=== PATIENT | male | born 1930 | race Caucasian/White ===

== ENCOUNTER 2016-11-18 16:28 | Inpatient (IN) ==
--- NOTE | 2016-11-18 16:51 | Emergency Department Note ---
Disposition Clinical Impression: Acute cystitis with hematuria, Nephrostomy tube bleed, Urinary bladder cancer, Anemia Disposition: Admitted As Inpatient Condition: Fair General Adult HPI - General Chief complaint: ED General Medical Stated complaint: dark blood coming from nephrostomy tube Time Seen by Provider: 11/18/16 16:47 Source: patient Limitations: no limitations - History of Present Illness Pain Scale: 4 - Related Data Home Medications Medication Instructions Recorded Confirmed Lovastatin [Mevacor] 20 mg PO HS 01/25/15 11/18/16 Omeprazole [PriLOSEC] 20 mg PO DAILY 01/25/15 11/18/16 Docusate [Colace] 100 mg PO DAILY 02/09/15 11/18/16 Tiotropium [Spiriva] 18 mcg IH DAILY 02/09/15 11/18/16 Ipratropium/Albuterol Neb [Duoneb] 3 ml IH TID PRN 05/21/16 11/18/16 LORazepam [Ativan] 1 mg PO QID PRN 05/21/16 11/18/16 Prochlorperazine Maleate 10 mg PO Q6HR PRN 05/21/16 11/18/16 [Compazine] Sennosides [Senna] 8.6 mg PO BID 05/21/16 11/18/16 amLODIPine [Norvasc] 5 mg PO DAILY 05/21/16 11/18/16 Cholecalciferol (D-3) [Vitamin D] 1,000 unit PO DAILY 11/18/16 11/18/16 Oxycodone HCl/Acetaminophen 1 each PO Q6H PRN 11/18/16 11/18/16 [Percocet 5-325 mg Tablet] hydrOXYzine pamoate [HydrOXYzine 25 mg PO HS 11/18/16 11/18/16 Pamoate] Previous Rx's Medication Instructions Recorded Hydrocodone/Acetaminophen [Xodol 1 tab PO TID PRN #30 tablet 05/23/16 10-300 Tablet] Allergies Allergy/AdvReac Type Severity Reaction Status Date / Time Penicillins Allergy Chest Pain Verified 05/21/16 07:33 Sulfa (Sulfonamide Allergy Chest Pain Verified 05/21/16 07:33 Antibiotics) Past Medical History - Past Medical History Medical history: Reports: cancer, COPD, GERD, hyperlipidemia, hypertension, other Surgical history: Reports: appendectomy, cholecystectomy, other Psychiatric history: Reports: no psych history - Social History Smoking Status: Former smoker Smokeless Tobacco Status: No Alcohol use: Reports: none Drug use: Reports: none Physical Exam - General Limitations: no limitations General appearance: alert Course Vital Signs Temperature 98.2 F 11/18/16 16:43 Pulse Rate 81 11/18/16 16:43 Respiratory Rate 18 11/18/16 16:43 Blood Pressure 124/60 11/18/16 16:43 O2 Sat by Pulse Oximetry 92 11/18/16 16:43 Temperature 97.8 F 11/18/16 20:15 Pulse Rate 70 11/18/16 20:15 Respiratory Rate 19 11/18/16 20:15 Blood Pressure 134/66 11/18/16 20:15 O2 Sat by Pulse Oximetry 90 11/18/16 20:15 Oxygen Delivery Oxygen Delivery Room Air Medical Decision Making - Lab Data Result diagrams: 11/18/16 17:14 11/18/16 17:14 Lab Results 11/18/16 11/18/16 11/18/16 Range/Units 17:14 17:14 17:33 WBC 8.0 (4.3-11.1) K/mcL RBC 3.40 L (4.19-5.50) M/mcL Hgb 10.6 L (12.9-16.9) g/dL Hct 32.9 L (37.5-50.1) % MCV 96.8 (83.0-100.0) fL MCH 31.2 (28.0-33.3) pg MCHC 32.2 (31.6-35.5) g/dL RDW 12.1 (11.5-14.5) % Plt Count 301 (140-400) K/mcL MPV 8.4 L (9.4-12.4) fL Immature Gran % 0.4 (0-4) % Seg Neutrophils % 74.6 % Lymphocytes % 14.9 % Monocytes % 8.3 % Eosinophils % 1.4 % Basophils % 0.4 % Neutrophils # 6.0 (1.6-8.9) K/mcL Lymphocytes # 1.2 (0.6-4.6) K/mcL Monocytes # 0.7 (0.0-1.3) K/mcL Eosinophils # 0.1 (0.0-0.6) K/mcL Basophils # 0.0 (0.0-0.2) K/mcL Sodium 138 (136-145) mEq/L Potassium 4.4 (3.5-4.5) mEq/L Chloride 101 (98-109) mEq/L Carbon Dioxide 33 H (19-29) mEq/L BUN 18 (8-26) mg/dL Creatinine 0.95 (0.72-1.25) mg/dL Est GFR ( Amer) > 60 (> 60) Est GFR (Non-Af Amer) > 60 (> 60) BUN/Creatinine Ratio 19 (6-26) Glucose 112 H (70-99) mg/dL Calculated Osmolality 289 (280-300) Lactic Acid 1.5 (0.5-2.2) mmol/L Calcium 8.9 (8.6-10.8) mg/dL Urine Color (Yellow) Urine Clarity (Clear) Urine pH (5.0-8.0) pH Units Ur Specific [place] (1.010-1.025) Urine Protein (Neg-Trace) mg/dL Urine Glucose (UA) (Normal) mg/dL Urine Ketones (Negative) mg/dL Urine Blood (Negative) Urine Nitrite (Negative) Urine Bilirubin (Negative) Urine Urobilinogen (Normal) mg/dL Ur Leukocyte Esterase (Negative) Urine Microscopic RBC (0-3) per hpf Urine Microscopic WBC (0-3) per hpf Amorphous Sediment (Few) Urine Bacteria (None-Few) per hpf Ur Culture Indicated? (NO) Blood Type Antibody Screen 11/18/16 11/18/16 Range/Units 17:36 18:02 WBC (4.3-11.1) K/mcL RBC (4.19-5.50) M/mcL Hgb (12.9-16.9) g/dL Hct (37.5-50.1) % MCV (83.0-100.0) fL MCH (28.0-33.3) pg MCHC (31.6-35.5) g/dL RDW (11.5-14.5) % Plt Count (140-400) K/mcL MPV (9.4-12.4) fL Immature Gran % (0-4) % Seg Neutrophils % % Lymphocytes % % Monocytes % % Eosinophils % % Basophils % % Neutrophils # (1.6-8.9) K/mcL Lymphocytes # (0.6-4.6) K/mcL Monocytes # (0.0-1.3) K/mcL Eosinophils # (0.0-0.6) K/mcL Basophils # (0.0-0.2) K/mcL Sodium (136-145) mEq/L Potassium (3.5-4.5) mEq/L Chloride (98-109) mEq/L Carbon Dioxide (19-29) mEq/L BUN (8-26) mg/dL Creatinine (0.72-1.25) mg/dL Est GFR ( Amer) (> 60) Est GFR (Non-Af Amer) (> 60) BUN/Creatinine Ratio (6-26) Glucose (70-99) mg/dL Calculated Osmolality (280-300) Lactic Acid (0.5-2.2) mmol/L Calcium (8.6-10.8) mg/dL Urine Color Red A (Yellow) Urine Clarity Turbid A (Clear) Urine pH 7.0 (5.0-8.0) pH Units Ur Specific [place] 1.015 (1.010-1.025) Urine Protein >=300 H (Neg-Trace) mg/dL Urine Glucose (UA) Normal (Normal) mg/dL Urine Ketones Trace H (Negative) mg/dL Urine Blood Large H (Negative) Urine Nitrite Positive A (Negative) Urine Bilirubin Moderate H (Negative) Urine Urobilinogen Normal (Normal) mg/dL Ur Leukocyte Esterase Large H (Negative) Urine Microscopic RBC TNTC H (0-3) per hpf Urine Microscopic WBC 50-100 H (0-3) per hpf Amorphous Sediment Moderate H (Few) Urine Bacteria Many H (None-Few) per hpf Ur Culture Indicated? YES A (NO) Blood Type A NEGATIVE Antibody Screen NEGATIVE Attestation Statement - Attestation Attestation: I examined this patient and my medical decision-making was reviewed with the Resident Physician. I agree with the documented findings, disposition and treatment plan as described except to the extent set forth below. [id number] time provided Patient presents with bleeding into his urostomy urine collection appliance. The patient is on hospice for bladder cancer. Appears thin and somewhat frail on exam but in no apparent distress. Patient seen and evaluated in conjunction with the resident physician Dr. Mai
[2016-11-18] MEDS ORDERED: 0.9 % Sodium Chloride 500 ML IVC ONE (17:19)
--- NOTE | 2016-11-18 17:20 | Emergency Department Note ---
Disposition Clinical Impression: Acute cystitis with hematuria, Nephrostomy tube bleed Urinary bladder cancer Qualifiers: Bladder location: unspecified site Qualified Code(s): C67.9 - Malignant neoplasm of bladder, unspecified Anemia Qualifiers: Anemia type: unspecified type Qualified Code(s): D64.9 - Anemia, unspecified Disposition: Admitted As Inpatient Condition: Fair Referrals: NO,PCP [Primary Care Provider] - Forms: ED Satisfaction Letter, Work/School Release Time of Disposition: 18:43 General Adult HPI - General Chief complaint: ED General Medical Stated complaint: dark blood coming from nephrostomy tube Time Seen by Provider: 11/18/16 16:47 Source: patient Limitations: no limitations Nursing Notes Reviewed: Yes Vital Signs Reviewed: Yes - History of Present Illness HPI Narrative: 86-year-old male with history of stage IV bladder cancer, presents with nephrostomy tubes bilaterally, has had more bloody and dark red output out of his left nephrostomy tube, he states that normally his tubes are clear, except for when he takes Pyridium they are sometimes bright red. Patient states that this started today. 08/12 Left flank painThey contacted their urologist Dr. Tomlinson and he stated the patient should come to the emergency dept. Onset (ago): hour(s) Radiation: back Pain Severity: moderate Pain Scale: 4 Quality: aching Improves with: nothing Worsens with: nothing Associated symptoms: Denies: confusion, chest pain, cough - Related Data Home Medications Medication Instructions Recorded Confirmed Lovastatin [Mevacor] 20 mg PO HS 01/25/15 05/21/16 Omeprazole [PriLOSEC] 20 mg PO DAILY 01/25/15 05/21/16 Docusate [Colace] 100 mg PO DAILY PRN 02/09/15 05/21/16 Tiotropium [Spiriva] 18 mcg IH DAILY 02/09/15 05/21/16 Ipratropium/Albuterol Neb [Duoneb] 3 ml IH TID PRN 05/21/16 05/21/16 LORazepam [Ativan] 1 mg PO QID PRN 05/21/16 05/21/16 Prochlorperazine Maleate 10 mg PO Q6HR PRN 05/21/16 05/21/16 [Compazine] Sennosides [Senna] 8.6 mg PO BID 05/21/16 05/21/16 amLODIPine [Norvasc] 5 mg PO DAILY 05/21/16 05/21/16 Previous Rx's Medication Instructions Recorded Hydrocodone/Acetaminophen [Xodol 1 tab PO TID PRN #30 tablet 05/23/16 10-300 Tablet] Allergies Allergy/AdvReac Type Severity Reaction Status Date / Time Penicillins Allergy Chest Pain Verified 05/21/16 07:33 Sulfa (Sulfonamide Allergy Chest Pain Verified 05/21/16 07:33 Antibiotics) All systems ED: reviewed and negative except as stated. Constitutional: Reports: weakness Eyes: Denies: eye pain Cardiovascular: Denies: chest pain, palpitations Respiratory: Denies: cough, dyspnea Gastrointestinal: Reports: abdominal pain Genitourinary: Reports: as per HPI, hematuria Musculoskeletal: Reports: back pain Past Medical History - Past Medical History Attestation: Yes The following information was validated with the patient. Medical history: Reports: cancer, COPD, GERD, hyperlipidemia, hypertension, other Surgical history: Reports: appendectomy, cholecystectomy, other Psychiatric history: Reports: no psych history - Social History Smoking Status: Former smoker Smokeless Tobacco Status: No Alcohol use: Reports: none Drug use: Reports: none Physical Exam Constitutional: Cachectic appearing elderly male in no acute distress. HEENT: NCAT, sclera anicteric Neck: normal inspection, neck is supple Resp: normal chest inspection, CTA bilaterally, no resp distress CV: RRR, no m/g/r GI: normal inspection, Soft, NTND, no hepatosplenomegaly, BS x 4 quadrants Back: Bilateral nephrostomy tubes, with right-sided red clear pink fluid in the tube on the left side there is dark red, serosanguineous fluid in the tube. Neuro: A&O3, no gross motor or sensory deficits bilaterally Skin: No rashes, skin warm, dry, intact - General Limitations: no limitations General appearance: alert Course Course Narrative: A 86-year-old male with hospice, bladder cancer stage IV, presents with nephrostomy tube bleeding, I did speak with Dr. Hayes, the patient sent by Dr. Tomlinson's office, they say given his symptoms that would indicate a CT scan for further workup and evaluation of his nephrostomy tube bleeding, with differential including infectious versus disease regression, versus obstruction , I spoke with the patient, he does elect to "do everything" at this time and hospice respite sales representative supervisor will be called from [facility] registration to disenroll the patient in hospice at this time for admission and treatment. - Reevaluation(s) Reevaluation #1: Hospice will be revoked for the purpose of inpatient admission, urinalysis reveals evidence of probable UTI cystitis we will treat with ceftriaxone IV, fluids, no evidence of sepsis at this time, patient to be admitted to the hospitalist service with urology consult placed Time: 18:36 Vital Signs Temperature 98.2 F 11/18/16 16:43 Pulse Rate 81 11/18/16 16:43 Respiratory Rate 18 11/18/16 16:43 Blood Pressure 124/60 11/18/16 16:43 O2 Sat by Pulse Oximetry 92 11/18/16 16:43 Temperature 98.2 F 11/18/16 16:43 Pulse Rate 79 11/18/16 17:21 Respiratory Rate 18 11/18/16 17:21 Blood Pressure 132/95 11/18/16 17:21 O2 Sat by Pulse Oximetry 94 11/18/16 17:21 Oxygen Delivery Oxygen Delivery Room Air Medical Decision Making - MDM Narrative Medical decision making narrative: A 86-year-old male with stage IV bladder cancer, left-sided nephrostomy tube bleeding, found to be anemic, evidence of a UTI and acute cystitis treatment with ceftriaxone initiated in the ED admitted to the hospitalist service in stable condition hospice care revoked for conditional admission - Medical Records Medical records reviewed: Yes I reviewed the patient's medical records. - Lab Data Lab results reviewed: Yes I reviewed the patient's lab results. Result diagrams: 11/18/16 17:14 11/18/16 17:14 Lab Results 11/18/16 11/18/16 11/18/16 Range/Units 17:14 17:14 17:33 WBC 8.0 (4.3-11.1) K/mcL RBC 3.40 L (4.19-5.50) M/mcL Hgb 10.6 L (12.9-16.9) g/dL Hct 32.9 L (37.5-50.1) % MCV 96.8 (83.0-100.0) fL MCH 31.2 (28.0-33.3) pg MCHC 32.2 (31.6-35.5) g/dL RDW 12.1 (11.5-14.5) % Plt Count 301 (140-400) K/mcL MPV 8.4 L (9.4-12.4) fL Immature Gran % 0.4 (0-4) % Seg Neutrophils % 74.6 % Lymphocytes % 14.9 % Monocytes % 8.3 % Eosinophils % 1.4 % Basophils % 0.4 % Neutrophils # 6.0 (1.6-8.9) K/mcL Lymphocytes # 1.2 (0.6-4.6) K/mcL Monocytes # 0.7 (0.0-1.3) K/mcL Eosinophils # 0.1 (0.0-0.6) K/mcL Basophils # 0.0 (0.0-0.2) K/mcL Sodium 138 (136-145) mEq/L Potassium 4.4 (3.5-4.5) mEq/L Chloride 101 (98-109) mEq/L Carbon Dioxide 33 H (19-29) mEq/L BUN 18 (8-26) mg/dL Creatinine 0.95 (0.72-1.25) mg/dL Est GFR ( Amer) > 60 (> 60) Est GFR (Non-Af Amer) > 60 (> 60) BUN/Creatinine Ratio 19 (6-26) Glucose 112 H (70-99) mg/dL Calculated Osmolality 289 (280-300) Lactic Acid 1.5 (0.5-2.2) mmol/L Calcium 8.9 (8.6-10.8) mg/dL Urine Color (Yellow) Urine Clarity (Clear) Urine pH (5.0-8.0) pH Units Ur Specific [place] (1.010-1.025) Urine Protein (Neg-Trace) mg/dL Urine Glucose (UA) (Normal) mg/dL Urine Ketones (Negative) mg/dL Urine Blood (Negative) Urine Nitrite (Negative) Urine Bilirubin (Negative) Urine Urobilinogen (Normal) mg/dL Ur Leukocyte Esterase (Negative) Urine Microscopic RBC (0-3) per hpf Urine Microscopic WBC (0-3) per hpf Amorphous Sediment (Few) Urine Bacteria (None-Few) per hpf Ur Culture Indicated? (NO) Blood Type Antibody Screen 11/18/16 11/18/16 Range/Units 17:36 18:02 WBC (4.3-11.1) K/mcL RBC (4.19-5.50) M/mcL Hgb (12.9-16.9) g/dL Hct (37.5-50.1) % MCV (83.0-100.0) fL MCH (28.0-33.3) pg MCHC (31.6-35.5) g/dL RDW (11.5-14.5) % Plt Count (140-400) K/mcL MPV (9.4-12.4) fL Immature Gran % (0-4) % Seg Neutrophils % % Lymphocytes % % Monocytes % % Eosinophils % % Basophils % % Neutrophils # (1.6-8.9) K/mcL Lymphocytes # (0.6-4.6) K/mcL Monocytes # (0.0-1.3) K/mcL Eosinophils # (0.0-0.6) K/mcL Basophils # (0.0-0.2) K/mcL Sodium (136-145) mEq/L Potassium (3.5-4.5) mEq/L Chloride (98-109) mEq/L Carbon Dioxide (19-29) mEq/L BUN (8-26) mg/dL Creatinine (0.72-1.25) mg/dL Est GFR ( Amer) (> 60) Est GFR (Non-Af Amer) (> 60) BUN/Creatinine Ratio (6-26) Glucose (70-99) mg/dL Calculated Osmolality (280-300) Lactic Acid (0.5-2.2) mmol/L Calcium (8.6-10.8) mg/dL Urine Color Red A (Yellow) Urine Clarity Turbid A (Clear) Urine pH 7.0 (5.0-8.0) pH Units Ur Specific [place] 1.015 (1.010-1.025) Urine Protein >=300 H (Neg-Trace) mg/dL Urine Glucose (UA) Normal (Normal) mg/dL Urine Ketones Trace H (Negative) mg/dL Urine Blood Large H (Negative) Urine Nitrite Positive A (Negative) Urine Bilirubin Moderate H (Negative) Urine Urobilinogen Normal (Normal) mg/dL Ur Leukocyte Esterase Large H (Negative) Urine Microscopic RBC TNTC H (0-3) per hpf Urine Microscopic WBC 50-100 H (0-3) per hpf Amorphous Sediment Moderate H (Few) Urine Bacteria Many H (None-Few) per hpf Ur Culture Indicated? YES A (NO) Blood Type A NEGATIVE Antibody Screen NEGATIVE - Radiology Data Radiology results reviewed: Yes I reviewed the patient's radiology results. Abdomen/Pelvis CT 11/18/16 17:16 IMPRESSION: Bilateral well-positioned nephrostomy catheters, no obstructive uropathy. Left eccentric bladder wall thickening and mild inflammation concerning for residual tumor and/or infection. Recommend correlation with urinary analysis and cystoscopy. D/ / Marilee Webb MD / Marilee Webb MD Interpreting Provider: Marilee Webb MD
[2016-11-18 17:23] LABS: Basophils % 0.4 %; Eosinophils # 0.1 K/mcL (0.0-0.6); Eosinophils % 1.4 %; Hematocrit 32.9 % (37.5-50.1); Hemoglobin 10.6 g/dL (12.9-16.9); Immature Granulocytes % 0.4 % (0-4); Lymphocytes # 1.2 K/mcL (0.6-4.6); Lymphocytes % 14.9 %; Mean Corpuscular HGB Conc 32.2 g/dL (31.6-35.5); Mean Corpuscular Hemoglobin 31.2 pg (28.0-33.3); Mean Corpuscular Volume 96.8 fL (83.0-100.0); Mean Platelet Volume 8.4 fL (9.4-12.4); Monocytes # 0.7 K/mcL (0.0-1.3); Monocytes % 8.3 %; Platelet Count 301 K/mcL (140-400); Red Cell Distribution Width 12.1 % (11.5-14.5); Segmented Neutrophils % 74.6 %
[2016-11-18 17:40] LABS: BUN/Creatinine Ratio 19 (6-26); Blood Urea Nitrogen 18 mg/dL (8-26); Calcium 8.9 mg/dL (8.6-10.8); Carbon Dioxide 33 mEq/L (19-29); Chloride 101 mEq/L (98-109); Glucose 112 mg/dL (70-99); Osmolality,Calculated 289 (280-300); Potassium 4.4 mEq/L (3.5-4.5); Sodium 138 mEq/L (136-145); eGFR For African Americans > 60 (> 60); eGFR For Non-African Americans > 60 (> 60)
[2016-11-18] MEDS ORDERED: *HR* Morphine 2 MG/ML SYRINGE IVP ONE (18:06)
[2016-11-18] MEDS ORDERED: Ondansetron 4 MG/2 ML VIAL IVP ONE (18:06)
[2016-11-18 18:12] LABS: Bilirubin,Urine Moderate (Negative); Blood,Urine Large (Negative); Clarity,Urine Turbid (Clear); Color,Urine Red (Yellow); Glucose,Urine (UA) Normal (Normal); Ketones,Urine Trace mg/dL (Negative); Leukocyte Esterase,Urine Large (Negative); Nitrite,Urine Positive (Negative); Protein,Urine >=300 mg/dL (Neg-Trace); Specific Gravity,Urine 1.015 (1.010-1.025); Urobilinogen,Urine Normal (Normal)
[2016-11-18 18:20] LABS: RBC,Urine TNTC per hpf (0-3); WBC,Urine 50-100 per hpf (0-3)
[2016-11-18 18:21] LABS: Amorphous Sediment,Urine Moderate (Few); Bacteria,Urine Many per hpf (None-Few)
[2016-11-18] MEDS ORDERED: *HR* Morphine 2 MG/ML SYRINGE IVP PRN (21:11)
[2016-11-18] MEDS ORDERED: Naloxone 0.4 MG/ML INJ IVP PRN (21:11)
[2016-11-18] MEDS ORDERED: Ondansetron 4 MG/2 ML VIAL IVP PRN (21:11)
[2016-11-18] MEDS ORDERED: Acetaminophen 325 MG TABLET PO PRN (21:11)
[2016-11-18] MEDS ORDERED: *HR* LORazepam 1 MG TABLET PO PRN (21:17)
[2016-11-18] MEDS ORDERED: Ipratropium/Albuterol Neb 3 ML IH PRN (21:17)
[2016-11-18] MEDS ORDERED: *HR* OxyCODONE/APAP 5/325 TABLET PO PRN (21:17)
[2016-11-18] MEDS: 0.9 % Sodium Chloride 1,000 ML IVC SCH (22:31)
--- NOTE | 2016-11-18 22:54 | Internal Med History&Physical ---
Date of Encounter: 11/18/16 Time of Encounter: 20:05 Assessment and Plan (1) Acute cystitis with hematuria Current visit: Yes Status: Acute 1. Will follow blood and urine cultures and cater antibiotics to culture results. 2. Continue IV Rocephin and IVF. 3. I reviewed old urine culture results -- no UTI since December,. He had nephrostomy tubes placed May,. 4. Urology consulted to assist with evaluation and of any disease progression. 5. Should he decompensate, he and family prefer comfort measures at that time. (2) Urinary bladder cancer Current visit: Yes Status: Chronic 1. Patient being followed by urology. 2. NO aggressive treatment. He prefers Hospice for now with current treatment of cystitis and pyelonephritis. 3. Urology consulted as above. 4. DNC code status. Qualifiers: Bladder location: unspecified site Qualified Code(s): C67.9 - Malignant neoplasm of bladder, unspecified (3) Hypertension Current visit: Yes Status: Chronic 1. Continue home meds as appropriate. 2. Monitor BP and adjust meds necessary. Qualifiers: Hypertension type: essential hypertension Qualified Code(s): I10 - Essential (primary) hypertension (4) DVT prophylaxis Current visit: Yes Status: Acute 1. EPCD's. 2. No anticoagulation due to gross hematuria. Internal Medicine - H&P: HPI Chief complaint: hematuria Admitted From: Emergency Dept Plans for Post Hospital Care: Home History of present illness: Mr. Smith is a 86 year old male who presents with a 2 day history of gross hematuria, mild flank pain, and low-grade fevers. He was sent to ER by his urologist for concerns of possible pyelonephritis and/or obstruction. Workup in the ER revealed patient to have no evidence of obstruction, but there is concern for either infection and/or disease progression of his bladder cancer. Urology was contacted and requested admission to the hospitalist service with consult to urology. Upon my assessment of the patient, patient looks a little dehydrated but otherwise in no acute distress. He and his daughter reiterate the above history. Patient has been enrolled in hospice for stage IV bladder cancer. He and his urologist requested admission today to treat suspected urine source of infection. He will most likely reenroll in hospice upon discharge. He has had no other complaints other than the above. His pain is controlled. He has had some minimal nausea but no vomiting or diarrhea. He has had no chest pain or problems breathing. Given the revocation of his hospice at this time, I discussed CODE STATUS with patient and his 2 daughters present. Patient requests to be DNR CC at this time. He and family would like treatment for suspected bladder/kidney infection , but they request no heroic measures. Past Med Surg Social Fam HX - Past Medical History Attestation: Yes The following information was validated with the patient. Source: patient, old records reviewed, obtained from family Medical history: cancer (stage 4 bladder cancer), COPD, GERD, hyperlipidemia, hypertension, other Psychiatric history: no psych history - Past Surgical History Surgical History: appendectomy, cholecystectomy, other - Social History Smoking Status: Former smoker Smokeless Tobacco Status: No Alcohol use: none Drug use: none - Family History Sister Living Status: Hx Family Respiratory Disorders: Yes Hx Family Cancer: Yes Internal Medicine - H&P: Meds Lovastatin [Mevacor] 20 mg PO HS 01/25/15 [History] Omeprazole [PriLOSEC] 20 mg PO DAILY 01/25/15 [History] Docusate [Colace] 100 mg PO DAILY 02/09/15 [History] Tiotropium [Spiriva] 18 mcg IH DAILY 02/09/15 [History] Ipratropium/Albuterol Neb [Duoneb] 3 ml IH TID PRN 05/21/16 [History] LORazepam [Ativan] 1 mg PO QID PRN 05/21/16 [History] Prochlorperazine Maleate [Compazine] 10 mg PO Q6HR PRN 05/21/16 [History] Sennosides [Senna] 8.6 mg PO BID 05/21/16 [History] amLODIPine [Norvasc] 5 mg PO DAILY 05/21/16 [History] Hydrocodone/Acetaminophen [Xodol 10-300 Tablet] 1 tab PO TID PRN #30 tablet [Rx] Cholecalciferol (D-3) [Vitamin D] 1,000 unit PO DAILY 11/18/16 [History] Oxycodone HCl/Acetaminophen [Percocet 5-325 mg Tablet] 1 each PO Q6H PRN [History] hydrOXYzine pamoate [HydrOXYzine Pamoate] 25 mg PO HS 11/18/16 [History] Allergies Penicillins Allergy (Verified 05/21/16 07:33) Chest Pain Sulfa (Sulfonamide Antibiotics) Allergy (Verified 05/21/16 07:33) Chest Pain - Constitutional Constitutional: fever(s), no chills, no night sweats - EENT Eyes: no blurry vision, no change in vision Ears: no ear pain, no tinnitus Nose, mouth and throat: no sinus pressure, no sore throat - Cardiovascular Cardiovascular ROS IM: no chest pain, no dyspnea - Respiratory Respiratory: no cough, no dyspnea, no hemoptysis - Gastrointestinal Gastrointestinal: nausea, no abdominal pain, no cramping, no diarrhea, no vomiting - Genitourinary Genitourinary ROS male: flank pain, hematuria - Musculoskeletal Musculoskeletal ROS IM: no back pain - Integumentary Integumentary IM: no rash, no jaundice - Neurological Neurological ROS: no focal weakness, no frequent falls, no headache(s) - Psychiatric Psychiatric: no anxiety, no depression - Endocrine Endocrine IM: no polydipsia, no polyuria - Hematologic/Lymphatic Hematologic/Lymphatic: no easy bruising, no lymphadenopathy - Allergic/Immunologic Allergic/Immunologic: no GI upset with certain foods - Constitutional Vitals: Temp Pulse Resp BP Pulse Ox 97.8 F 70 19 134/66 90 11/18/16 20:15 11/18/16 20:15 11/18/16 20:15 11/18/16 20:15 11/18/16 20:15 General appearance: Present: cooperative, A&O X 3, pleasant, no acute distress, answers questions appropriately - Head Head exam: Present: normal inspection - Eye Eye exam: Present: EOMI, normal appearance, PERRL. Absent: scleral icterus Pupils: Present: normal accommodation - ENT ENT exam: Present: mucous membranes dry, normal exam - Neck Neck exam general surgery: Present: full ROM, supple. Absent: lymphadenopathy - Respiratory Respiratory exam: Present: CTAB. Absent: rales, rhonchi, wheezes - Cardiovascular Cardiovascular exam: Present: RRR, +S1, +S2. Absent: diastolic murmur, systolic murmur - GI/Abdominal GI/Abdominal exam: Present: normal bowel sounds, soft. Absent: guarding, hepatomegaly, mass, rebound, splenomegaly, tenderness - Extremities Exam Extremities exam: Present: warm. Absent: calf tenderness, joint swelling, pedal edema - Back Exam Back exam: Present: CVA tenderness (L) (mild). Absent: CVA tenderness (R) Additional comments: bilateral nephrostomy tubes in place - Neurological Exam Neurological exam: Present: alert, CN II-XII intact, oriented X3, no focal deficits - Psychiatric Psychiatric exam: Present: normal affect, normal mood - Skin Skin exam: Present: dry, warm. Absent: rash Internal Med - H&P Results - Labs CBC & Chem 7: 11/18/16 17:14 11/18/16 17:14 Labs: U/A reviewed -- TNTC RBC's; 50-100 WBC/HPF - Diagnostic Studies CT scan - abdomen Additional comments: Report reviewed -- no obstruction
[2016-11-19] MEDS ORDERED: Temazepam 15 MG CAPSULE PO STA (01:53)
[2016-11-19 05:33] LABS: Basophils % 0.4 %; Eosinophils # 0.2 K/mcL (0.0-0.6); Eosinophils % 2.6 %; Hematocrit 30.6 % (37.5-50.1); Hemoglobin 9.8 g/dL (12.9-16.9); Immature Granulocytes % 0.2 % (0-4); Lymphocytes # 1.5 K/mcL (0.6-4.6); Lymphocytes % 18.2 %; Mean Corpuscular Hemoglobin 31.3 pg (28.0-33.3); Mean Corpuscular Volume 97.8 fL (83.0-100.0); Monocytes # 0.7 K/mcL (0.0-1.3); Monocytes % 8.3 %; Neutrophils # 5.7 K/mcL (1.6-8.9); Platelet Count 289 K/mcL (140-400); Red Blood Count 3.13 M/mcL (4.19-5.50); Red Cell Distribution Width 12.2 % (11.5-14.5); Segmented Neutrophils % 70.3 %
[2016-11-19 05:34] LABS: Prothrombin Time 11.2 Seconds (9.4-12.1)
[2016-11-19 05:38] LABS: Activated Partial Thrombo Time 25.7 Seconds (26.0-36.0)
[2016-11-19 06:08] LABS: Alanine Aminotransferase 11 Units/L (0-55); Albumin 2.8 g/dL (3.5-5.0); Alkaline Phosphatase 55 Units/L (38-126); Aspartate Amino Transferase 12 Units/L (5-34); BUN/Creatinine Ratio 18 (6-26); Bilirubin,Total 0.3 mg/dL (0.2-1.2); Blood Urea Nitrogen 16 mg/dL (8-26); Calcium 8.5 mg/dL (8.6-10.8); Carbon Dioxide 34 mEq/L (19-29); Chloride 103 mEq/L (98-109); Globulin 2.9 g/dL (2.4-3.5); Glucose 128 mg/dL (70-99); Magnesium 1.5 mg/dL (1.6-2.6); Osmolality,Calculated 291 (280-300); Potassium 3.9 mEq/L (3.5-4.5); Sodium 139 mEq/L (136-145); Total Protein 5.7 g/dL (6.0-8.3); eGFR For African Americans > 60 (> 60); eGFR For Non-African Americans > 60 (> 60)
--- NOTE | 2016-11-19 07:23 | Urology - Consult Note ---
Date of Encounter: 11/19/16 Time of Encounter: 07:21 - Assessment and Plan (1) Dehydration Current Visit: Yes Status: Acute Assessment and plan: Continue IV fluids at this time. Patient states that he does not drink enough water and he knows it. (2) Nephrostomy tube bleed Current Visit: Yes Status: Acute Assessment and plan: This has seemed to resolve with fluids and antibodies. Await cultures for determination of by mouth antibiotics. 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 No obvious distal progression on recent CT scan. Qualifiers: Bladder location: overlapping sites Qualified Code(s): C67.8 - Malignant neoplasm of overlapping sites of bladder Urology CN:HPI Consult date: 11/19/16 Reason for consult Urology: Gross Hematuria Requesting physician: Blaine Sequeira History of present illness: Sam is an 86-year-old male well known to urology service for advanced bladder cancer currently on hospice. Patient had started to develop significant bleeding from his bilateral nephrostomy tubes as well as from his penis yesterday. He was brought to the emergency department yesterday. CT scan was performed which revealed left lateral wall bladder tumor without any obvious distal metastatic disease. Patient appeared dehydrated to the hospitalist service. Patient also had nitrite positive urine from his tubing. Patient was brought in for IV fluids and IV antibiotics. He feels much better this a.m. after receiving fluids overnight. He states his urine in his tubing for his bilateral nephrostomy tubes has cleared. Past Med Surg Social Fam HX - Past Medical History Medical history: cancer (stage 4 bladder cancer), COPD, GERD, hyperlipidemia, hypertension, other Psychiatric history: no psych history - Past Surgical History Surgical History: appendectomy, cholecystectomy, other - Social History Smoking Status: Former smoker Smokeless Tobacco Status: No Alcohol use: none Drug use: none - Family History Sister Living Status: Hx Family Respiratory Disorders: Yes Hx Family Cancer: Yes Medications and Allergies Lovastatin [Mevacor] 20 mg PO HS 01/25/15 [History] Omeprazole [PriLOSEC] 20 mg PO DAILY 01/25/15 [History] Docusate [Colace] 100 mg PO DAILY 02/09/15 [History] Tiotropium [Spiriva] 18 mcg IH DAILY 02/09/15 [History] Ipratropium/Albuterol Neb [Duoneb] 3 ml IH TID PRN 05/21/16 [History] LORazepam [Ativan] 1 mg PO QID PRN 05/21/16 [History] Prochlorperazine Maleate [Compazine] 10 mg PO Q6HR PRN 05/21/16 [History] Sennosides [Senna] 8.6 mg PO BID 05/21/16 [History] amLODIPine [Norvasc] 5 mg PO DAILY 05/21/16 [History] Hydrocodone/Acetaminophen [Xodol 10-300 Tablet] 1 tab PO TID PRN #30 tablet [Rx] Cholecalciferol (D-3) [Vitamin D] 1,000 unit PO DAILY 11/18/16 [History] Oxycodone HCl/Acetaminophen [Percocet 5-325 mg Tablet] 1 each PO Q6H PRN [History] hydrOXYzine pamoate [HydrOXYzine Pamoate] 25 mg PO HS 11/18/16 [History] Allergies Penicillins Allergy (Verified 05/21/16 07:33) Chest Pain Sulfa (Sulfonamide Antibiotics) Allergy (Verified 05/21/16 07:33) Chest Pain Review of Systems - Constitutional no chills - EENT Nose, mouth and throat: no dizziness - Cardiovascular no chest pain - Respiratory no cough - Gastrointestinal abdominal pain (Patient still states he has some lower abdominal discomfort but believes this will resolve with a bowel movement) - Genitourinary no as per HPI - Musculoskeletal no back pain - Integumentary no erythema - Neurological no confusion - Psychiatric no anxiety Exam Initial Vital Signs Temp Pulse Resp BP Pulse Ox 98.2 F 81 18 124/60 92 11/18/16 16:43 11/18/16 16:43 11/18/16 16:43 11/18/16 16:43 11/18/16 16:43 - General physical appearance Present: well developed - Eyes Present: PERRL - ENT Present: normal nares - Neck Present: no masses - Respiratory Present: normal respiratory effort - Cardiovascular Cardiovascular exam IM: RRR - Abdomen Abdomen: Present: soft - Genitourinary other (Bilateral nephrostomy tubes with clear yellow urine in each) Urology Results - Labs 11/19/16 04:18 11/19/16 04:18 Abnormal lab results RBC 3.13 M/mcL (4.19-5.50) L 11/19/16 04:18 Hgb 9.8 g/dL (12.9-16.9) L 11/19/16 04:18 Hct 30.6 % (37.5-50.1) L 11/19/16 04:18 MPV 9.0 fL (9.4-12.4) L 11/19/16 04:18 APTT 25.7 Seconds (26.0-36.0) L 11/19/16 04:18 Carbon Dioxide 34 mEq/L (19-29) H 11/19/16 04:18 Glucose 128 mg/dL (70-99) H 11/19/16 04:18 Calcium 8.5 mg/dL (8.6-10.8) L 11/19/16 04:18 Magnesium 1.5 mg/dL (1.6-2.6) L 11/19/16 04:18 Serum Total Protein 5.7 g/dL (6.0-8.3) L 11/19/16 04:18 Albumin 2.8 g/dL (3.5-5.0) L 11/19/16 04:18 Albumin/Globulin Ratio 1.0 (1.1-2.2) L 11/19/16 04:18 Urine Color Red (Yellow) A 11/18/16 18:02 Urine Clarity Turbid (Clear) A 11/18/16 18:02 Urine Protein >=300 mg/dL (Neg-Trace) H 11/18/16 18:02 Urine Ketones Trace mg/dL (Negative) H 11/18/16 18:02 Urine Blood Large (Negative) H 11/18/16 18:02 Urine Nitrite Positive (Negative) A 11/18/16 18:02 Urine Bilirubin Moderate (Negative) H 11/18/16 18:02 Ur Leukocyte Esterase Large (Negative) H 11/18/16 18:02 Urine Microscopic RBC TNTC per hpf (0-3) H 11/18/16 18:02 Urine Microscopic WBC 50-100 per hpf (0-3) H 11/18/16 18:02 Amorphous Sediment Moderate (Few) H 11/18/16 18:02 Urine Bacteria Many per hpf (None-Few) H 11/18/16 18:02 Ur Culture Indicated? YES (NO) A 11/18/16 18:02 Diabetes panel 11/19/16 Range/Units 04:18 Sodium 139 (136-145) mEq/L Potassium 3.9 (3.5-4.5) mEq/L Chloride 103 (98-109) mEq/L Carbon Dioxide 34 H (19-29) mEq/L BUN 16 (8-26) mg/dL Creatinine 0.88 (0.72-1.25) mg/dL Glucose 128 H (70-99) mg/dL Calcium 8.5 L (8.6-10.8) mg/dL AST 12 (5-34) Units/L ALT 11 (0-55) Units/L Alkaline Phosphatase 55 (38-126) Units/L Albumin 2.8 L (3.5-5.0) g/dL Calcium panel 11/19/16 Range/Units 04:18 Calcium 8.5 L (8.6-10.8) mg/dL Albumin 2.8 L (3.5-5.0) g/dL Pituitary panel 11/19/16 Range/Units 04:18 Sodium 139 (136-145) mEq/L Potassium 3.9 (3.5-4.5) mEq/L Chloride 103 (98-109) mEq/L Carbon Dioxide 34 H (19-29) mEq/L BUN 16 (8-26) mg/dL Creatinine 0.88 (0.72-1.25) mg/dL Glucose 128 H (70-99) mg/dL Calcium 8.5 L (8.6-10.8) mg/dL Adrenal panel 11/19/16 Range/Units 04:18 Sodium 139 (136-145) mEq/L Potassium 3.9 (3.5-4.5) mEq/L Chloride 103 (98-109) mEq/L Carbon Dioxide 34 H (19-29) mEq/L BUN 16 (8-26) mg/dL Creatinine 0.88 (0.72-1.25) mg/dL Glucose 128 H (70-99) mg/dL Calcium 8.5 L (8.6-10.8) mg/dL Total Bilirubin 0.3 (0.2-1.2) mg/dL AST 12 (5-34) Units/L ALT 11 (0-55) Units/L Alkaline Phosphatase 55 (38-126) Units/L Albumin 2.8 L (3.5-5.0) g/dL All other labs normal. Consult Discharge Plan - Plan Referrals: NO,PCP [Primary Care Provider] -
[2016-11-19] MEDS: Cholecalciferol (D-3) 1,000 UNIT TABLET PO SCH (09:02)
[2016-11-19] MEDS: Sennosides 8.6 MG TABLET PO SCH ×2 (09:02→20:17)
[2016-11-19] MEDS: 0.9 % Sodium Chloride 1,000 ML IVC SCH ×2 (09:02→20:17)
[2016-11-19] MEDS: amLODIPine 5 MG TABLET PO SCH (09:02)
--- NOTE | 2016-11-19 09:13 | Internal Med Progress Note ---
<Kristofer Rivera - Last Filed: 11/19/16 09:29> Date of Encounter: 11/19/16 Time of Encounter: 09:00 - Assessment and plan (1) Acute cystitis with hematuria Current Visit: Yes Status: Acute Assessment and plan: Patient presented to the hospital with blood in his nephrostomy tubes, primarily on the left side, as well as blood from his penis. -He described a burning sensation on urination. -Patient did not have a fever upon presentation. -He denies having any back pain, fever, chills, nausea, or vomiting was morning. -He also denies having suprapubic pain. -Urinalysis on admission was performed, and revealed red urine high urine protein, large amount of urine blood, positive nitrates, 50-100 WBCs, many bacteria. -Urine culture has been ordered, and antibiotics will be adjusted as necessary. -Patient is currently on ceftriaxone. Continue IV fluids. -Urology has been consulted, and will follow his disease progression. (2) Nephrostomy tube bleed Current Visit: Yes Status: Acute Assessment and plan: Blood is visualized in the left nephrostomy tube. - No gross blood appreciated in the urine bag. 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 -CT scan did not reveal any changes in the appearance of his bladder cancer since his last imaging study. -No aggressive treatment. -He prefers hospice for now. Qualifiers: Bladder location: overlapping sites Qualified Code(s): C67.8 - Malignant neoplasm of overlapping sites of bladder (4) Anemia Current Visit: Yes Status: Acute Assessment and plan: Patient's hemoglobin this morning was 9.8. Qualifiers: Anemia type: unspecified type Qualified Code(s): D64.9 - Anemia, unspecified - Subjective Interval history: Patient was seen and examined at bedside this morning. Patient states that he still has the sensation of burning on urination. His left-sided catheter back was examined at bedside, and blood was seen in the tube. No blood was seen in the urine itself. Patient admits that he has some abdominal pain, primarily in his right lower quadrant and left lower quadrant. This pain is mild, and he describes it as a cramp. He states this is most likely related to his constipation. He takes MiraLAX on a regular basis, but has not yet received it since his visit. He currently denies fever, chills, nausea, vomiting, loss of appetite, or suprapubic tenderness. Patient also denies having any pain in his back. He has no other complaints at this time. - Constitutional Vitals: Temp Pulse Resp BP Pulse Ox 98.3 F 84 15 133/54 90 11/19/16 08:00 11/19/16 08:00 11/19/16 08:00 11/19/16 08:00 11/19/16 08:00 General appearance: Present: cooperative, A&O X 3, pleasant, no acute distress, answers questions appropriately - Respiratory Respiratory exam: Present: CTAB. Absent: accessory muscle use, rales, rhonchi, wheezes - Cardiovascular Cardiovascular exam: Present: RRR, +S1, +S2. Absent: diastolic murmur, gallop, rubs, systolic murmur - GI/Abdominal GI/Abdominal exam: Present: normal bowel sounds, soft, tenderness. Absent: distended Additional comments: Patient does admit to having some tenderness in his right lower quadrant and left lower quadrant, which she states is most likely a result of his constipation. He states that when he does have this kind of abdominal pain, it is most often relieved and he uses the bathroom. He has not received any MiraLAX since his stay in the hospital. Internal Medicine: Result - Labs CBC & Chem 7: 11/19/16 04:18 11/19/16 04:18 Labs: Short CBC 11/19/16 Range/Units 04:18 WBC 8.2 (4.3-11.1) K/mcL Hgb 9.8 L (12.9-16.9) g/dL Hct 30.6 L (37.5-50.1) % Plt Count 289 (140-400) K/mcL Neutrophils # 5.7 (1.6-8.9) K/mcL BMP 11/19/16 04:18 Sodium 139 Potassium 3.9 Chloride 103 Carbon Dioxide 34 H BUN 16 Creatinine 0.88 Glucose 128 H Calcium 8.5 L Liver Function 11/19/16 Range/Units 04:18 Total Bilirubin 0.3 (0.2-1.2) mg/dL AST 12 (5-34) Units/L ALT 11 (0-55) Units/L Alkaline Phosphatase 55 (38-126) Units/L Albumin 2.8 L (3.5-5.0) g/dL - ABG Interpretation ABG results: PT/INR, D-dimer PT 11.2 Seconds (9.4-12.1) 11/19/16 04:18 Consult Discharge Plan - Plan Referrals: NO,PCP [Primary Care Provider] - <Cornelius Reynolds H - Last Filed: 11/19/16 15:32> Date of Encounter: 11/19/16 - Constitutional Vitals: Temp Pulse Resp BP Pulse Ox 97.8 F 83 14 138/55 91 11/19/16 13:41 11/19/16 13:41 11/19/16 13:41 11/19/16 13:41 11/19/16 13:41 Internal Medicine: Result - Labs CBC & Chem 7: 11/19/16 04:18 11/19/16 04:18 Labs: Short CBC 11/19/16 Range/Units 04:18 WBC 8.2 (4.3-11.1) K/mcL Hgb 9.8 L (12.9-16.9) g/dL Hct 30.6 L (37.5-50.1) % Plt Count 289 (140-400) K/mcL Neutrophils # 5.7 (1.6-8.9) K/mcL BMP 11/19/16 04:18 Sodium 139 Potassium 3.9 Chloride 103 Carbon Dioxide 34 H BUN 16 Creatinine 0.88 Glucose 128 H Calcium 8.5 L Liver Function 11/19/16 Range/Units 04:18 Total Bilirubin 0.3 (0.2-1.2) mg/dL AST 12 (5-34) Units/L ALT 11 (0-55) Units/L Alkaline Phosphatase 55 (38-126) Units/L Albumin 2.8 L (3.5-5.0) g/dL - ABG Interpretation ABG results: PT/INR, D-dimer PT 11.2 Seconds (9.4-12.1) 11/19/16 04:18 - Attending Attestation Rocephin day 2 The patient is having hematuria from his left nephrostomy tube. Urology recommendations appreciated Culture shows mixed william and will not be evaluated. The patient continues to improve Rocephin we might be able to discharge him on Cefdinir I examined this patient and my medical decision-making was reviewed with the Resident Physician. I agree with the documented findings, disposition and treatment plan as described except to the extent set forth below.
[2016-11-19] MEDS: Tiotropium 18 MCG inhalation IH SCH (11:04)
[2016-11-19] MEDS ORDERED: *HR* OxyCODONE/APAP 10/325 TABLET PO PRN (11:12)
[2016-11-19] MEDS ORDERED: *HR* OxyCODONE/APAP 5/325 TABLET PO PRN (11:13)
[2016-11-19] MEDS: *HR* Morphine 2 MG/ML SYRINGE IVP PRN (15:51)
[2016-11-19] MEDS: Lactulose Oral Soln 20 GM/30 ML UDC PO SCH (20:17)
[2016-11-19] MEDS ORDERED: hydrOXYzine pamoate 25 MG CAPSULE PO SCH (21:00)
[2016-11-20 06:56] LABS: Basophils % 0.3 %; Eosinophils # 0.2 K/mcL (0.0-0.6); Eosinophils % 2.7 %; Hematocrit 33.6 % (37.5-50.1); Hemoglobin 10.9 g/dL (12.9-16.9); Immature Granulocytes % 0.2 % (0-4); Lymphocytes # 1.8 K/mcL (0.6-4.6); Lymphocytes % 21.1 %; Mean Corpuscular HGB Conc 32.4 g/dL (31.6-35.5); Mean Corpuscular Hemoglobin 31.5 pg (28.0-33.3); Mean Corpuscular Volume 97.1 fL (83.0-100.0); Mean Platelet Volume 9.2 fL (9.4-12.4); Monocytes # 0.7 K/mcL (0.0-1.3); Monocytes % 8.1 %; Neutrophils # 5.8 K/mcL (1.6-8.9); Platelet Count 328 K/mcL (140-400); Red Blood Count 3.46 M/mcL (4.19-5.50); Red Cell Distribution Width 12.3 % (11.5-14.5); Segmented Neutrophils % 67.6 %
[2016-11-20 06:59] LABS: BUN/Creatinine Ratio 14 (6-26); Blood Urea Nitrogen 12 mg/dL (8-26); Calcium 8.7 mg/dL (8.6-10.8); Carbon Dioxide 34 mEq/L (19-29); Chloride 104 mEq/L (98-109); Glucose 102 mg/dL (70-99); Osmolality,Calculated 294 (280-300); Sodium 142 mEq/L (136-145); eGFR For African Americans > 60 (> 60); eGFR For Non-African Americans > 60 (> 60)
--- NOTE | 2016-11-20 07:23 | Urology Progress Note ---
Date of Encounter: 11/20/16 Time of Encounter: 07:22 - Assessment and Plan (1) Acute cystitis with hematuria Current Visit: Yes Status: Acute Assessment and plan: unfortunately urien cx is again mixed william. I do suspect he had an infection but no culture to base outpt ABX. OK with discharge today if pt remains stable. consider levaquin or cefdinir (verify PCN not severe) for 14 days. 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 followup as scheduled with me Qualifiers: Bladder location: overlapping sites Qualified Code(s): C67.8 - Malignant neoplasm of overlapping sites of bladder Progress Note Subjective: feels better Narrative: sleeping this AM but felt much better yesterday. Objective Initial Vital Signs Temp Pulse Resp BP Pulse Ox 98.2 F 81 18 124/60 92 11/18/16 16:43 11/18/16 16:43 11/18/16 16:43 11/18/16 16:43 11/18/16 16:43 - General physical appearance Present: no distress - Additional Exam nephrostomy tubes with clear urine. no blood - Labs 11/20/16 05:34 11/20/16 05:34 Diabetes panel 11/20/16 Range/Units 05:34 Sodium 142 (136-145) mEq/L Potassium 4.0 (3.5-4.5) mEq/L Chloride 104 (98-109) mEq/L Carbon Dioxide 34 H (19-29) mEq/L BUN 12 (8-26) mg/dL Creatinine 0.86 (0.72-1.25) mg/dL Glucose 102 H (70-99) mg/dL Calcium 8.7 (8.6-10.8) mg/dL Calcium panel 11/20/16 Range/Units 05:34 Calcium 8.7 (8.6-10.8) mg/dL Pituitary panel 11/20/16 Range/Units 05:34 Sodium 142 (136-145) mEq/L Potassium 4.0 (3.5-4.5) mEq/L Chloride 104 (98-109) mEq/L Carbon Dioxide 34 H (19-29) mEq/L BUN 12 (8-26) mg/dL Creatinine 0.86 (0.72-1.25) mg/dL Glucose 102 H (70-99) mg/dL Calcium 8.7 (8.6-10.8) mg/dL Adrenal panel 11/20/16 Range/Units 05:34 Sodium 142 (136-145) mEq/L Potassium 4.0 (3.5-4.5) mEq/L Chloride 104 (98-109) mEq/L Carbon Dioxide 34 H (19-29) mEq/L BUN 12 (8-26) mg/dL Creatinine 0.86 (0.72-1.25) mg/dL Glucose 102 H (70-99) mg/dL Calcium 8.7 (8.6-10.8) mg/dL Consult Discharge Plan - Plan Referrals: NO,PCP [Primary Care Provider] -
[2016-11-20] MEDS: Tiotropium 18 MCG inhalation IH SCH (08:05)
[2016-11-20] MEDS: Lactulose Oral Soln 20 GM/30 ML UDC PO SCH (08:10)
[2016-11-20] MEDS: amLODIPine 5 MG TABLET PO SCH (08:10)
[2016-11-20] MEDS: Cholecalciferol (D-3) 1,000 UNIT TABLET PO SCH (08:10)
[2016-11-20] MEDS: Sennosides 8.6 MG TABLET PO SCH (08:10)
[2016-11-20] MEDS: *HR* Morphine 2 MG/ML SYRINGE IVP PRN (08:11)
[2016-11-20] MEDS ORDERED: *HR* Morphine 2 MG/ML SYRINGE IVP PRN (09:18)
--- NOTE | 2016-11-20 10:01 | Discharge Summary ---
<Kristofer Rivera - Last Filed: 11/20/16 09:57> Date of Encounter: 11/20/16 Time of Encounter: 08:45 - Discharge Diagnosis (1) Acute cystitis with hematuria Priority: Primary Status: Acute Comments: Patient presented to the hospital with blood in his nephrostomy tubes, primarily on the left side -UA revealed red urine high urine protein, large amount of urine blood, positive nitrates, 50-100 WBCs, many bacteria. -Urine culture: grossly mixed -Patient was given ceftriaxone during his stay. -Urology was consulted, and recommended antibiotics for a total of 14 days. -Patient will be given Cefdinir 300 mg PO BID for 12 days. (2) Nephrostomy tube bleed Priority: Secondary Status: Acute Comments: Blood is visualized in the left nephrostomy tube. - No gross blood appreciated in the urine bag. (3) Urinary bladder cancer Priority: Secondary Status: Chronic Comments: Patient is currently being followed by urology. -CT scan did not reveal any changes in the appearance of his bladder cancer since his last imaging study. -No aggressive treatment. -He prefers hospice for now. Qualifiers: Bladder location: overlapping sites Qualified Code(s): C67.8 - Malignant neoplasm of overlapping sites of bladder (4) Anemia Priority: Secondary Status: Acute Comments: Patient's hemoglobin this morning was 10.9. Qualifiers: Anemia type: unspecified type Qualified Code(s): D64.9 - Anemia, unspecified (5) Loss of appetite Priority: Secondary Status: Acute Comments: Patient admits to having loss of appetite. -He states that this loss of appetite happened several months ago after that of his . -Was able to eat some of his breakfast this morning. -Admits to having some mild abdominal pain. - Discharge Medications Prescriptions: Cefdinir [Omnicef] 300 mg PO BID #24 capsule Home Medications: Lovastatin [Mevacor] 20 mg PO HS 01/25/15 [History] Omeprazole [PriLOSEC] 20 mg PO DAILY 01/25/15 [History] Docusate [Colace] 100 mg PO DAILY 02/09/15 [History] Tiotropium [Spiriva] 18 mcg IH DAILY 02/09/15 [History] Ipratropium/Albuterol Neb [Duoneb] 3 ml IH TID PRN 05/21/16 [History] LORazepam [Ativan] 1 mg PO QID PRN 05/21/16 [History] Prochlorperazine Maleate [Compazine] 10 mg PO Q6HR PRN 05/21/16 [History] Sennosides [Senna] 8.6 mg PO BID 05/21/16 [History] amLODIPine [Norvasc] 5 mg PO DAILY 05/21/16 [History] Hydrocodone/Acetaminophen [Xodol 10-300 Tablet] 1 tab PO TID PRN #30 tablet [Rx] Cholecalciferol (D-3) [Vitamin D] 1,000 unit PO DAILY 11/18/16 [History] Oxycodone HCl/Acetaminophen [Percocet 5-325 mg Tablet] 1 each PO Q6H PRN [History] hydrOXYzine pamoate [HydrOXYzine Pamoate] 25 mg PO HS 11/18/16 [History] Cefdinir [Omnicef] 300 mg PO BID #24 capsule 11/20/16 [Rx] Allergies/Adverse Reactions: Allergies Penicillins Allergy (Verified 05/21/16 07:33) Chest Pain Sulfa (Sulfonamide Antibiotics) Allergy (Verified 05/21/16 07:33) Chest Pain Date of admission: 11/18/16 21:53 Primary care physician: PCP NO Consults: 11/19/16 10:56 Consult to Telecommunications Professional [CONS] Routine Reason for SW Consult: Hospice re-enrollment Discharging clinician: Kristofer Rivera Anticipated date of discharge: 11/20/16 - Patient Status Disposition: Home, Self-Care Condition: Fair Overall status at discharge: patient is progressing back to baseline - Discharge Instructions Follow Up With: NO,PCP [Primary Care Provider] - Additional Instructions: Follow up with urology in the outpatient setting. - Diet and Activity Diet: advance to your usual diet Hospital course: Mr. Smith is a 86 year old male with a past medical history of bladder cancer , anemia, hypertension, and COPD who presented with a 2 day history of gross hematuria, nephrostomy tube bleeding, and mild flank pain. He was sent to the ER by his urologist for concern of possible pyelonephritis. CT scan was performed in the ER and showed no obstructive uropathy, but it did show left bladder wall thickening. Blood culture was obtained that was negative. Urine culture revealed grossly mixed bacteria. Patient was started on ceftriaxone. When patient was seen after admission, he states that he still had a burning sensation in his penis. His left calf that her back was examined at bedside, and some blood was seen in the tubes. No blood was seen in the bag itself. He did admitted to having some mild abdominal pain, primarily in the right lower quadrant and left lower quadrant. This first day he had some trouble moving his bowels. He was given lactulose and MiraLAX, and his constipation resolved. The next day, patient admitted to having a loss of appetite, secondary to the loss of his . He states that this loss of appetite had been going on for the last 4 or 5 months. He was able to eat some breakfast. His constipation has improved, and his abdominal pain was still present. This pain is not reproducible by palpation. Patient's condition at discharge is stable. Urology has seen the patient. Urology stated that it is okay to discharge this patient today. Urology recommends putting patient on Levaquin for cefdinir. Patient will follow up with urology in the outpatient setting. Patient will be given 300 mg by mouth twice a day of cefdinir for 12 days on discharge. - Time Spent with Patient Total time spent providing and/or coordinating discharge services: Greater than 30 minutes (40 minutes) - Constitutional Vitals: Temp Pulse Resp BP Pulse Ox 97.9 F 77 18 150/70 95 11/20/16 08:25 11/20/16 08:25 11/20/16 08:25 11/20/16 08:25 11/20/16 08:25 General appearance: Present: cooperative, A&O X 3, pleasant, answers questions appropriately - ENT ENT exam: Present: mucous membranes dry - Respiratory Respiratory exam: Present: CTAB. Absent: accessory muscle use, rales, rhonchi, wheezes - Cardiovascular Cardiovascular exam: Present: RRR, +S1, +S2. Absent: diastolic murmur, gallop, rubs, systolic murmur - GI/Abdominal GI/Abdominal exam: Present: tenderness Additional comments: Patient has tenderness in the lower quadrants of the abdomen. -Pain is 3 out of 10. -Not reproduced by palpation. - Additional comments: Nephrostomy tubes and this nephrostomy bags visualized. -There is blood present in the left nephrostomy tube. -There is no blood present in either of the bags. <Cornelius Reynolds H - Last Filed: 11/20/16 10:23> Date of Encounter: 11/20/16 Date of admission: 11/18/16 21:53 Primary care physician: PCP NO Consults: 11/19/16 10:56 Consult to Telecommunications Professional [CONS] Routine Reason for SW Consult: Hospice re-enrollment Hospital course: Mr. Smith is a 86 year old male - Time Spent with Patient Total time spent providing and/or coordinating discharge services: - Constitutional Vitals: Temp Pulse Resp BP Pulse Ox 97.9 F 77 18 150/70 95 11/20/16 08:25 11/20/16 08:25 11/20/16 08:25 11/20/16 08:25 11/20/16 08:25 - Attending Attestation Complete 12 more days of Cefdinir I examined this patient and my medical decision-making was reviewed with the Resident Physician. I agree with the documented findings, disposition and treatment plan as described except to the extent set forth below.
--- NOTE | 2016-11-20 10:27 | Physician Discharge Referral ---
Home Health/Hosp Referral Info Transfer to: Hospice Provider in Charge Post Discharge: PCP - Diagnosis (1) Acute cystitis with hematuria Priority: Primary Status: Acute (2) Nephrostomy tube bleed Priority: Secondary Status: Acute (3) Urinary bladder cancer Priority: Secondary Status: Chronic (4) Anemia Priority: Secondary Status: Acute (5) Loss of appetite Priority: Secondary Status: Acute - Respiratory Orders Smoking Cessation: Smoking cessation has been advised. For more information, call the [place] Tobacco Quit Line at 2-508-THUI-NOW. - Diet/Nutrition Diet/Nutrition Orders: Regular - Activity Activity Orders: Ambulate - Services Needed Following services are medically necessary services: Nursing, Home Health Aide Other Treatments: Complete 12 days of Cefdinir, 300 mg PO twice a day. Follow up with urology as needed. - Transfer Medications Prescriptions: Cefdinir [Omnicef] 300 mg PO BID #24 capsule Home Medications: Lovastatin [Mevacor] 20 mg PO HS 01/25/15 [History] Omeprazole [PriLOSEC] 20 mg PO DAILY 01/25/15 [History] Docusate [Colace] 100 mg PO DAILY 02/09/15 [History] Tiotropium [Spiriva] 18 mcg IH DAILY 02/09/15 [History] Ipratropium/Albuterol Neb [Duoneb] 3 ml IH TID PRN 05/21/16 [History] LORazepam [Ativan] 1 mg PO QID PRN 05/21/16 [History] Prochlorperazine Maleate [Compazine] 10 mg PO Q6HR PRN 05/21/16 [History] Sennosides [Senna] 8.6 mg PO BID 05/21/16 [History] amLODIPine [Norvasc] 5 mg PO DAILY 05/21/16 [History] Hydrocodone/Acetaminophen [Xodol 10-300 Tablet] 1 tab PO TID PRN #30 tablet [Rx] Cholecalciferol (D-3) [Vitamin D] 1,000 unit PO DAILY 11/18/16 [History] Oxycodone HCl/Acetaminophen [Percocet 5-325 mg Tablet] 1 each PO Q6H PRN [History] hydrOXYzine pamoate [HydrOXYzine Pamoate] 25 mg PO HS 11/18/16 [History] Cefdinir [Omnicef] 300 mg PO BID #24 capsule 11/20/16 [Rx] Allergies/Adverse Reactions: Allergies Penicillins Allergy (Verified 05/21/16 07:33) Chest Pain Sulfa (Sulfonamide Antibiotics) Allergy (Verified 05/21/16 07:33) Chest Pain Certification: Further, I certify that my clinical findings support that this patient is homebound (i.e. absences from home require considerable and taxing effort and are for medical reasons or alevism services or infrequently or short duration when for other reasons) because: Homebound Reason: Leaving home requires considerable and taxing effort due to condition Attestation: My signature below is to certify that this patient is under my care and that I, or nurse practitioner, or a physician's starch treating assistant working with me, has a face-to -face encounter with this patient.
[2016-11-20 12:10] VITALS: BP 136/64
[2016-11-20] MEDS: 0.9 % Sodium Chloride 1,000 ML IVC SCH (15:02)
== END 2016-11-20 17:20 | disposition home or self-care (01) | DRG 690 ==
LOC: EMEROO 16:28 → 2ANU 16:28 → SUATTDRO 21:53
PROVIDERS: ADMIT Internal Medicine; ATTEND Internal Medicine